=== PATIENT | male | born 1965 | race Caucasian/White ===

== ENCOUNTER → 2022-02-26 | Day surgery (SDC) | payer OTHER ==
[~2022-02-26] VITALS: Ht 165.1 cm; Wt 54.5 kg
[~2022-02-26] MED LIST: FentaNYL CITRATE PF 100 MCG/2 ML VIAL ONE; MIDAZOLAM HCL 5 MG/ML VIAL ONE; MethylPREDNISolone SOD SUCC 125 MG/2 ML VIAL IVP ONE; MethylPREDNISolone SOD SUCC 125 MG/2 ML VIAL ONE; OXYGEN THERAPY IH SCH; SODIUM CHLORIDE 0.9% 1,000 ML IV ONE; SODIUM CHLORIDE 0.9% 1,000 ML ONE; SODIUM CHLORIDE 0.9% 10 ML ONE
[2022-02-26 07:05] LABS: COVID AG,FIA SOURCE NASAL SWAB
== END | disposition still patient (30) ==
LOC: EDBD 05:29 → SURGERY 05:29
PROVIDERS: ATTEND Internal Medicine Critical Care Medicine
DX: J38.4 Edema of larynx (principal); B37.0 Candidal stomatitis; F17.210 Nicotine dependence, cigarettes, uncomplicated
CPT/HCPCS: 31623; 31624; 71045; 71250; 87015; 87070; 87101; 87206; 87220; 87426; 88108; 88184; 88185; 88305; C9803; J2250; J2930; J3010; J7030